=== PATIENT | female | born 1955 | race Caucasian/White ===

== ENCOUNTER 2025-02-16 14:21 | Emergency (ER) | payer MEDICARE, SELFPAY ==
[2025-02-16 14:23] VITALS: BP 132/108; PULSE 75; RESP 16; TEMP 36.6; O2SAT 100; BMI 45.4
--- NOTE | 2025-02-16 14:36 | EKG12_ITS ---
Test Reason : SOB Blood Pressure : */* mmHG Vent. Rate : 94 BPM Atrial Rate : 94 BPM P-R Int : 142 ms QRS Dur : 76 ms QT Int : 352 ms P-R-T Axes : 64 13 48 degrees QTcB Int : 440 ms Sinus rhythm with Premature atrial complexes Otherwise normal ECG Confirmed by LUTHER BARNEY, ELIAS ([id number]), editor map AVEL MAYEN ([id number]) on 02/17/2025 10:35:25 AM Referred By: SEBASTIAN/LUIS F Confirmed By: ELIAS SLOAN MD
--- NOTE | 2025-02-16 14:40 | VDLE_ITS ---
Reason For Study Reason For Study: SWELLING RIGHT LEFT GSV is normal. GSV is normal. CFV is compressible, spontaneous, phasic, competent CFV is compressible, spontaneous, phasic, competent, and demonstrates normal augmentation. and demonstrates normal augmentation. FV is compressible, spontaneous, phasic, competent FV is compressible, spontaneous, phasic, competent and demonstrates normal augmentation. and demonstrates normal augmentation. POP V is compressible, spontaneous, phasic, competent POP V is compressible, spontaneous, phasic, competent and demonstrates normal augmentation. and demonstrates normal augmentation. T/P Trunk is compressible. T/P Trunk is compressible. PTV is compressible. PTV is compressible. RT PerV is compressible. LT PerV is compressible. Procedure NON-VASCULAR structure noted in LT POP FOSSA space This is a venous duplex using B-mode, color flow and measuring 2.85 cm x 2.60 cm. spectral Doppler. Exam performed in department. The study was technically difficult. The exam was diagnostic. A preliminary report was called and/or faxed to ED @ 15:15. VL/Venous Duplex US - Efrain Extrem Interpretation Summary Deep veins of the lower extremities are bilaterally patent and compressible seg mentally. There is no evidence of deep vein thrombosis on either side. Valvular competence appears intact within the p roximal deep venous systems bilaterally. The great saphenous veins appear bilaterally patent and compressible segmentall y. A non-vascular, hypoechoic structure is noted in the left popliteal space, measuring 2.85 cm x 2.60 cm. This probabl y represents a popliteal cyst. Clinical correlation is advised. Ordering Physician: Simón Mccain Referring Physician: Day Frederick Performed By: Zena Elliott, RDCS, RVT
[2025-02-16 14:46] LABS: Absolute Lymphocyte Count 2.61 X10^3/uL (0.83-4.51); Absolute Neutrophil Count 4.9 X10^3/uL (2.0-7.7); Basophil# 0.07 X10^3/uL; Basophil% 0.8 % (0-1); Eosinophil# 0.81 X10^3/uL; Eosinophils% 9.2 % (0-5); Hematocrit 37.9 % (37-47); Hemoglobin 13.2 g/dL (12.0-15.0); Lymphocyte # 2.61 X10^3/ul (0.83-4.51); Lymphocyte % 29.5 % (19-41); Mean Corp Hgb Conc 34.8 g/dL (32-36); Mean Corpuscular Hgb 29.5 pg (27.0-32.0); Mean Corpuscular Volume 84.6 fL (81-99); Mean Platelet Vol. 8.6 fl (6.2-12.0); Monocyte# 0.48 X10^3/uL; Monocyte% 5.4 % (0-10); NRBC Flagged by Analyzer 0 % (0-5); Neutrophil # 4.85 X10^3/uL (2.7-7.7); Neutrophil % 54.8 % (47-70); Platelet Count 363 K/mm3 (150-450); RBC Distribution Width CV 14.2 % (11.6-14.6); RBC Distribution Width SD 43.5 fl (35.1-43.9); Red Blood Count 4.48 M/mm3 (4.2-5.4); White Blood Count 8.9 K/mm3 (4.4-11.0)
[2025-02-16 15:17] LABS: Anion Gap 13 (5-15); BUN 15 mg/dL (4-19); BUN/Creat Ratio 21.3 RATIO (10-20); Calcium,Total 9.5 mg/dL (7.6-11.0); Chloride 97 mmol/L (98-108); Creatinine, Serum 0.69 mg/dL (0.70-1.20); EST Glomerular Filtration Rate 95 (>60); Estimated Creatinine Clearance 79.88 ml/min (50-250); Glucose 182 mg/dL (70-99); Potassium 4.5 mmol/L (3.3-5.1); Sodium Level 136 mmol/L (133-145)
[2025-02-16 15:20] LABS: D-Dimer Quantitative (DVT/PE) 0.37 FEU/ug/m (0.27-0.49)
[2025-02-16 15:30] LABS: Troponin T High Sensitivity 10 ng/L (<=14)
--- NOTE | 2025-02-16 15:44 | ED.RN ---
MD seeing pt in triage room 2
--- NOTE | 2025-02-16 15:48 | EX.ED.DYSGE1 ---
HPI History of Present Illness Chief Complaint: Shortness of Breath Informant: patient Narrative Narrative: Sent in from PCP for evaluation. Concerns for potential PE or DVT. She has had some left lower extremity swelling which she went to the lower limbs back on January 22. She went by car. She tried to go to breast care there however did not [id number] and her insurance number not matching referred to the ED however her brother was sick and she stayed with him who . She returned 3 days ago saw her PCP today. Intermittent chest pain nonobstructive coronary disease diabetes hyperlipidemia history. She has had a cough for last 2 months. No fever or chills. States she feels cold. No dysuria. [facility] Medical History (Updated 02/16/25 @ 19:[address] Simón Mccain, DO) Diabetes Home Medications ?Medication ?Instructions ?Recorded ?Last Taken ?Type metformin 500 mg tablet,extended 1,000 mg PO BID 02/01/14 02/16/25 History release 24 hr albuterol sulfate 90 mcg/actuation 2 inh inhalation Q4H PRN shortness 02/16/25 Unknown History breath activated powder inhaler of breath aspirin 81 mg tablet,delayed 81 mg PO DAILY 02/16/25 02/15/25 History release (Adult Aspirin Regimen) atorvastatin 80 mg tablet 80 mg PO QHS 02/16/25 02/15/25 History cholecalciferol (vitamin D3) 125 125 mcg PO QHS 02/16/25 02/15/25 History mcg (5,000 unit) capsule cyclobenzaprine 10 mg tablet 10 mg PO QHS PRN MUSCLE SPASMS 02/16/25 02/12/25 History dulaglutide 3 mg/0.5 mL 3 mg subcut QWEEK 02/16/25 02/09/25 History subcutaneous pen injector ([facility]) fluticasone propionate 50 2 spray intranasal DAILY PRN 02/16/25 Unknown History mcg/actuation nasal allergy symptoms spray,suspension (Allergy Relief (fluticasone)) ibuprofen 200 mg capsule (Advil 800 mg PO Q6H PRN fever or pain 02/16/25 02/15/25 History Migraine) levothyroxine 137 mcg tablet 137 mcg PO DAILY 02/16/25 02/16/25 History losartan 25 mg tablet 25 mg PO DAILY 02/16/25 02/16/25 History magnesium oxide 400 mg PO BID 02/16/25 02/14/25 History metoprolol succinate 50 mg 50 mg PO QHS 02/16/25 02/15/25 History tablet,extended release 24 hr nitroglycerin 0.4 mg sublingual 0.4 mg sublingual Q5M PRN chest 02/16/25 Unknown History tablet pain omeprazole 20 mg capsule,delayed 20 mg PO DAILY 02/16/25 Unknown History release sertraline 100 mg tablet 100 mg PO DAILY 02/16/25 02/16/25 History Allergy/AdvReac Type Severity Reaction Status Date / Time carbamazepine Allergy Rash Verified 02/16/25 14:26 Penicillins Allergy Rash Verified 02/16/25 14:26 codeine AdvReac Nausea/Vom/ Verified 02/16/25 14:26 Diarrhea Opioids - Morphine Analogues AdvReac Nausea Verified 02/16/25 14:26 (narcotics) Sulfa (Sulfonamide AdvReac Nausea Verified 02/16/25 14:26 Antibiotics) Social History Smoking Status: Never smoker ROS ROS ED Constitutional Constitutional ED: Denies chills, fever(s) or sweats ENT ENT ED: Denies sore throat Cardiovascular Cardiovascular: Reports chest pain and leg edema; Denies palpitations or racing heartbeat Respiratory/Chest Respiratory/Chest: Reports cough; Denies dyspnea or dyspnea on exertion Gastrointestinal Gastrointestinal: Denies abdominal pain, diarrhea, nausea or vomiting Genitourinary Genitourinary ED: Denies dysuria, hematuria or urinary frequency Musculoskeletal Musculoskeletal: Denies back pain, extremity pain or neck pain Integumentary Denies rash or wounds Neurologic Neurologic: Denies headache(s), paresthesias or weakness EXAM Physical Exam Const Vital Signs: 02/16/25 14:23 02/16/25 16:00 02/16/25 16:00 Temperature 97.8 F Temperature Source Oral Pulse Rate 75 Respiratory Rate 16 15 Respiratory Effort Respiratory Depth Respiratory Pattern Blood Pressure 132/108 H Blood Pressure Mean 116 Pulse Ox 100 100 100 Oxygen Delivery Method Room Air Room Air Room Air 02/16/25 16:00 02/16/25 16:00 02/16/25 16:23 Temperature Temperature Source Pulse Rate 72 Respiratory Rate 19 H Respiratory Effort Normal Non-Labored Normal Non-Labored Respiratory Depth Normal Respiratory Pattern Normal Blood Pressure 136/51 H Blood Pressure Mean 79 Pulse Ox 97 Oxygen Delivery Method Room Air Room Air 02/16/25 17:48 02/16/25 19:00 02/16/25 19:21 Temperature 97.8 F Temperature Source Pulse Rate 76 79 96 Respiratory Rate 13 18 18 Respiratory Effort Respiratory Depth Respiratory Pattern Blood Pressure 121/89 H 115/59 L 115/59 L Blood Pressure Mean 99 77 77 Pulse Ox 99 100 100 Oxygen Delivery Method Room Air Positive well nourished and well developed General Appearance ED: well developed and NAD HEENT Reports moist mucous membranes normocephalic and atraumatic Eyes General Eye ED: Yes normal appearance of both eyes Neck full ROM Chest Wall Chest: Negative for tenderness Resp normal respiratory effort and normal air movement Effort and Inspection: symmetric chest movement; Negative for respiratory distress Cardio regular rate, regular rhythm and no murmurs Peripheral Pulses: pulses 2+ throughout GI normal to inspection, nondistended, normoactive bowel sounds and non-tender Palpation: Negative for guarding or rebound tenderness present Extremity normal to inspection Extremity Narrative: Minimal swelling bilateral feet good pulses. No calf or medial thigh tenderness. Slightly more on the left side. General Extremety ED: Yes edema; Negative for tenderness General Extremity: edema Neuro oriented x3 and no sensory deficits noted Sensorium / Orientation: awake and alert Skin no rashes or lesions noted and no wounds MDM MDM MDM Narrative Medical decision making narrative: Interventions / MDM: Differential diagnosis: Peripheral edema, atypical chest pain Diagnosis considered but do not suspect: DVT ultrasound negative. PE however D-dimer negative. ACS however EKG cardiac enzymes negative. My EKG interpretation: Sinus rhythm 94, no ST changes no T wave inversions. Premature atrial contractions noted. Imaging independently reviewed and interpreted by myself: Bilateral lower extremity ultrasound: Negative per senior pharmacy technician. 2 view chest x-ray: No acute process. External documents reviewed: N/A Test considered but not ordered:N/A ED course: Patient seen in triage due to busy department. Workup initiated protocol Through nursing triage. Her EKG sinus rhythm PAC noted. Leg ultrasound ordered, D-dimer added. 1544: Ultrasounds negative initial troponin negative. D-dimer negative. Hemoglobin 13.2 white count 8.9. Sodium 136 potassium 4.5. Creatinine 0.69. Two-view chest x-ray ordered for further evaluation. 1914: Repeat troponin negative. Chest x-ray negative. Patient ambulated with pulse ox 99% room air. Discussed likely dependent edema from her travels. Discussed elevating when she is resting and monitoring. She will follow-up with her PCP. All questions were answered. Re-evaluation: stable Disposition discussed with patient/family/significant other: Patient and family Case discussed with consulting clinician: N/A This note was generated with [employer] dictation software. It may contain incorrect words, spelling, and punctuation that were not noted in checking the note before signing. Lab Data Attestation: I reviewed the patient's lab results. Labs: Laboratory Results - last 24 hr 02/16/25 02/16/25 02/16/25 14:35 17:10 18:55 WBC 8.9 RBC 4.48 Hgb 13.2 Hct 37.9 MCV 84.6 MCH 29.5 MCHC 34.8 RDW Std Deviation 43.5 RDW Coeff of [place] 14.2 Plt Count 363 MPV 8.6 Immature Gran % (Auto) 0.300 Neut % (Auto) 54.8 Lymph % (Auto) 29.5 [place] % (Auto) 5.4 Eos % (Auto) 9.2 H Baso % (Auto) 0.8 Absolute Neuts (auto) 4.9 Absolute Lymphs (auto) 2.61 Nucleated RBC % 0 D-Dimer Quant (PE/DVT) 0.37 Sodium 136 Potassium 4.5 Chloride 97 L Carbon Dioxide 26.0 Anion Gap 13 BUN 15 Creatinine 0.69 L Estim Creat Clear Calc 79.88 Est GFR (MDRD) Non-Af 95 BUN/Creatinine Ratio 21.3 H Glucose 182 H Calcium 9.5 Troponin T High Sens 10 Troponin T Hi Sens 2 Hr 9 Troponin T Hi Sens 4Hr 9 NT pro BNP II 452 Radiography Diagnostic Testing: Clinical Impression(s) from Imaging Studies Venous Doppler Study 02/16/25 14:40 Interpretation Summary Deep veins of the lower extremities are bilaterally patent and compressible segmentally. There is no evidence of deep vein thrombosis on either side. Valvular competence appears intact within the proximal deep venous systems bilaterally. The great saphenous veins appear bilaterally patent and compressible segmentally. A non-vascular, hypoechoic structure is noted in the left popliteal space, measuring 2.85 cm x 2.60 cm. This probably represents a popliteal cyst. Clinical correlation is advised. Ordering Physician: Simón Mccain Referring Physician: Day Frederick Performed By: Znea Elliott, BRITTANY, RVT Chest X-Ray 02/16/25 16:15 IMPRESSION: NO ACUTE FINDINGS. Reading Location: [place] [id number] Discharge Plan Triage Chief Complaint: Shortness of Breath Other Complaint: Edema ED Provider: Simón Mccain Dx/Rx/DC Orders Clinical Impression: Chest pain, Edema, peripheral Instructions: ED Chest Pain, Uncertain Cause, ED Peripheral Edema, Bilateral Prescriptions: No Action metformin 500 MG tablet extended release 24 hr 1,000 mg PO BID Patient Comments: Trulicity 3 mg/0.5 mL pen injector 3 mg subcut QWEEK Rx Instructions: TAKE ON TUESDAYS, TAKES AT NIGHT losartan 25 mg tablet 25 mg PO DAILY omeprazole 20 mg capsule,delayed release(DR/EC) 20 mg PO DAILY Patient Comments: PT TAKES NEEDED levothyroxine 137 mcg tablet 137 mcg PO DAILY Rx Instructions: TAKE 1 AND 1/2 TAB ON SAT, SAT, AND SATURDAY cyclobenzaprine 10 mg tablet 10 mg PO QHS PRN (Reason: MUSCLE SPASMS) atorvastatin 80 mg tablet 80 mg PO QHS magnesium oxide 400 mg magnesium tablet 400 mg PO BID metoprolol succinate 50 mg tablet extended release 24 hr 50 mg PO QHS sertraline 100 mg tablet 100 mg PO DAILY fluticasone propionate [Allergy Relief (fluticasone)] 50 mcg/actuation spray,suspension 2 spray intranasal DAILY PRN (Reason: allergy symptoms) nitroglycerin 0.4 mg tablet, sublingual 0.4 mg sublingual Q5M PRN (Reason: chest pain) Rx Instructions: do not exceed 3 doses per episode aspirin [Adult Aspirin Regimen] 81 mg tablet,delayed release (DR/EC) 81 mg PO DAILY albuterol sulfate 90 mcg/actuation aerosol powdr breath activated 2 inh inhalation Q4H PRN (Reason: shortness of breath) ibuprofen [Advil Migraine] 200 mg capsule 800 mg PO Q6H PRN (Reason: fever or pain) cholecalciferol (vitamin D3) 125 mcg (5,000 unit) capsule 125 mcg PO QHS Primary Care Provider: Jerel Carranza Referrals: Day Frederick MD [Non-Staff] - Jerel Carranza MD [Primary Care Provider] - 3-5 Days Activity Restrictions/Additional Instructions: Ultrasounds negative lower extremities for DVT. Cardiac workup including D-dimer negative. BNP normal. Chest x-ray normal. Elevate your legs while sitting or laying down. Follow-up with your doctor. Print Language: Ivorian Disposition Disposition: Home, Self Care Discharge Date/Time: 02/16/25 19:22
[2025-02-16 15:57] LABS: Pro- Brain NATRIURETIC PEPTIDE 452 pg/mL (<=900)
[2025-02-16 16:00] VITALS: RESP 15; O2SAT 100
--- NOTE | 2025-02-16 16:15 | RAD_ITS ---
PROCEDURE: CHEST PA AND LATERAL 02/16/2025 REASON FOR EXAM: SOB TECHNIQUE: Frontal and lateral views of the chest. COMPARISON: None. FINDINGS: Hardware: None. Heart: The heart size is normal. Mediastinum: The mediastinal contour is unremarkable. Lungs: The lungs are clear. Bones: Partially visualized lumbar fixation. RAD/Chest PA and Lateral IMPRESSION: NO ACUTE FINDINGS. Reading Location: [place] [id number]
[2025-02-16 16:23] VITALS: BP 136/51; PULSE 72; RESP 19; O2SAT 97
[2025-02-16 17:30] LABS: Troponin T High Sens 2 HR 9 ng/L (<=14)
[2025-02-16 17:48] VITALS: BP 121/89; PULSE 76; RESP 13; O2SAT 99
[2025-02-16 19:00] VITALS: BP 115/59; PULSE 79; RESP 18; O2SAT 100
[2025-02-16 19:21] VITALS: BP 115/59; PULSE 96; RESP 18; TEMP 36.6; O2SAT 100
[2025-02-16 19:29] LABS: Troponin T High Sens 4 HR 9 ng/L (<=14)
== END 2025-02-16 19:22 | disposition home or self-care (01) ==
PROVIDERS: Emergency Provider Emergency Medicine; PCP Family Medicine; Visit Provider Emergency Medicine
DX: R07.9 Chest pain, unspecified (principal); E11.9 Type 2 diabetes mellitus without complications; R06.02 Shortness of breath; I49.1 Atrial premature depolarization; R60.9 Edema, unspecified; R05.9 Cough, unspecified
CPT/HCPCS: 71046; 80048; 83880; 84484; 85025; 85379; 93005; 93970; 94760; 99285; A4216

== ENCOUNTER 2025-07-29 17:38 | Emergency (ER) | payer MEDICARE, SELFPAY ==
[2025-07-29 17:38] VITALS: BP 123/92; PULSE 78; RESP 16; TEMP 35.7; O2SAT 100
[2025-07-29 17:51] VITALS: BMI 45.6
--- NOTE | 2025-07-29 18:23 | CT_ITS ---
PROCEDURE: CT/Brain/Head without Contrast
--- NOTE | 2025-07-29 18:23 | CT_ITS ---
PROCEDURE: CT/Spine Cervical without Contras
--- NOTE | 2025-07-29 18:30 | ED.VIS.FALL ---
HPI HPI - Fall History of Present Illness Chief Complaint: Fall Narrative Narrative: Chief complaint and HPI: 70-year-old female with past medical history of diabetes, HLD, HTN, hypothyroidism presents for evaluation after mechanical fall. Patient states she was walking out of a restaurant when she lost her balance. Denies LOC. Fell mostly on her right side. Endorses mild headache, neck pain, right shoulder, elbow, and hand pain. Denies any numbness or tingling. Review of systems: See HPI Medications: As listed on the chart Allergies: As listed on the chart PFSH: Per chart Vital signs: As listed on the chart. Reviewed. Physical exam: Gen: A&O x3, NAD Head: Normocephalic, atraumatic Eyes: No sclera icterus, conjunctiva clear, PERRL, EOMI ENT: TMs clear BL, moist mucous membranes, no swelling/lacerations/blood in the mouth or the nares, No nasal septal hematoma, no facial tenderness Neck: Trachea midline, no midline cervical tenderness, tenderness to palpation in the right paraspinal musculature of the cervical spine and into the right trapezius muscle-this recreates her pain CV: RRR, no murmurs, no chest wall TTP Resp: Lungs CTA BL, no w/r/c GI: Abd soft, non-distended, non-tender, no r/r/g Musc: Full ROM, no deformity, no spinal TTP, no jeaneth step-offs, patient has tenderness to palpation of the right shoulder, elbow, proximal palm of the right hand. Has ecchymosis and mild swelling to the proximal ulnar and proximal palm of the right hand. Radial pulse +2 bilaterally. DP/PT pulses +2 bilaterally. Good capillary refill. Sensation intact. Compartments soft. Skin: Warm, dry Neuro: Alert, oriented, grossly intact, sensation intact, GCS 15 Psych: Cooperative, appropriate mood and affect [facility] Medical History Diabetes Home Medications ?Medication ?Instructions ?Recorded ?Last Taken ?Type metformin 500 mg tablet,extended 1,000 mg PO BID 02/01/14 02/16/25 History release 24 hr albuterol sulfate 90 mcg/actuation 2 inh inhalation Q4H PRN shortness 02/16/25 Unknown History breath activated powder inhaler of breath aspirin 81 mg tablet,delayed 81 mg PO DAILY 02/16/25 02/15/25 History release (Adult Aspirin Regimen) atorvastatin 80 mg tablet 80 mg PO QHS 02/16/25 02/15/25 History cholecalciferol (vitamin D3) 125 125 mcg PO QHS 02/16/25 02/15/25 History mcg (5,000 unit) capsule cyclobenzaprine 10 mg tablet 10 mg PO QHS PRN MUSCLE SPASMS 02/16/25 02/12/25 History dulaglutide 3 mg/0.5 mL 3 mg subcut QWEEK 02/16/25 02/09/25 History subcutaneous pen injector (Trul[facility]) fluticasone propionate 50 2 spray intranasal DAILY PRN 02/16/25 Unknown History mcg/actuation nasal allergy symptoms spray,suspension (Allergy Relief (fluticasone)) ibuprofen 200 mg capsule (Advil 800 mg PO Q6H PRN fever or pain 02/16/25 02/15/25 History Migraine) levothyroxine 137 mcg tablet 137 mcg PO DAILY 02/16/25 02/16/25 History losartan 25 mg tablet 25 mg PO DAILY 02/16/25 02/16/25 History magnesium oxide 400 mg PO BID 02/16/25 02/14/25 History metoprolol succinate 50 mg 50 mg PO QHS 02/16/25 02/15/25 History tablet,extended release 24 hr nitroglycerin 0.4 mg sublingual 0.4 mg sublingual Q5M PRN chest 02/16/25 Unknown History tablet pain omeprazole 20 mg capsule,delayed 20 mg PO DAILY 02/16/25 Unknown History release sertraline 100 mg tablet 100 mg PO DAILY 02/16/25 02/16/25 History Allergy/AdvReac Type Severity Reaction Status Date / Time carbamazepine Allergy Rash Verified 07/29/25 17:40 Penicillins Allergy Rash Verified 07/29/25 17:40 codeine AdvReac Nausea/Vom/ Verified 07/29/25 17:40 Diarrhea Opioids - Morphine Analogues AdvReac Nausea Verified 07/29/25 17:40 (narcotics) Sulfa (Sulfonamide AdvReac Nausea Verified 07/29/25 17:40 Antibiotics) Social History Smoking Status: Never smoker EXAM Physical Exam Const Vital Signs: 07/29/25 17:38 07/29/25 17:49 Temperature 96.2 F L Temperature Source Temporal Pulse Rate 78 Respiratory Rate 16 Respiratory Effort Normal Non-Labored Respiratory Depth Normal Respiratory Pattern Normal Blood Pressure 123/92 H Blood Pressure Mean 102 Pulse Ox 100 Oxygen Delivery Method Room Air Room Air MDM MDM MDM Narrative Medical decision making narrative: 70 old female with past medical history of diabetes, HLD, HTN, hypothyroidism presents for evaluation after mechanical fall. Patient states she was walking out of a restaurant when she lost her balance. Denies LOC. Fell mostly on her right side. Endorses mild headache, neck pain, right shoulder, elbow, and hand pain. See physical exam findings. Differential diagnosis includes but is not limited to contusion, fracture, sprain. Suspect less likely intracranial abnormality. Given this is purely mechanical fall the laboratory workup will be obtained. Patient offered narcotic pain medicine but declined. Tylenol ordered. CT of the head and neck ordered. X-ray of the right upper extremity ordered. CT of the head shows no acute intracranial abnormality. CT of the cervical spine shows no acute traumatic injury. Reversal of the cervical lordosis, may reflect muscle spasm. X-ray of the elbow, forearm, hand, shoulder was personally reviewed and interpreted by nd, ED physician. No fracture or dislocation. Radiology in agreement. Patient's symptoms are likely secondary to contusion. Patient stable to discharge home. Tylenol and ibuprofen as needed for pain. Follow-up with primary care physician. She confirmed understand the plan. Patient will discharge. Impression: 1. Mechanical fall 2. Closed head injury 2. Right upper extremity contusion Radiography Diagnostic Testing: Clinical Impression(s) from Imaging Studies Brain CT 07/29/25 18:23 IMPRESSION: No acute intracranial abnormality. Reading Location: [facility] Cervical Spine CT 07/29/25 18:23 IMPRESSION: 1. No acute cervical spine fracture. 2. Reversal of the cervical lordosis, may reflect muscle spasm. 3. Degenerative changes of the spine, as above. Reading Location: [facility] Elbow X-Ray 07/29/25 18:46 IMPRESSION: NO ACUTE FRACTURE OR DISLOCATION. Reading Location: [facility] Forearm X-Ray 07/29/25 18:46 IMPRESSION: NO ACUTE FRACTURE OR DISLOCATION. Reading Location: [facility] Hand X-Ray 07/29/25 18:46 IMPRESSION: NO ACUTE FRACTURE OR DISLOCATION. If acute hand or wrist trauma is suspected and initial radiographs are negative or equivocal repeat radiographs in 10-14 days MRI without IV contrast or CT without IV contrast is usually appropriate as the next imaging study. (ACR Appropriateness Criteria: Acute Hand and Wrist Trauma 2018) Reading Location: [facility] Shoulder X-Ray 07/29/25 18:46 IMPRESSION: NO ACUTE FRACTURE OR DISLOCATION. Reading Location: [facility] Discharge Plan Triage Chief Complaint: Fall ED Provider: Fermín Muniz Dx/Rx/DC Orders Prescriptions: No Action metformin 500 MG tablet extended release 24 hr 1,000 mg PO BID Patient Comments: Trulicity 3 mg/0.5 mL pen injector 3 mg subcut QWEEK Rx Instructions: TAKE ON TUESDAYS, TAKES AT NIGHT losartan 25 mg tablet 25 mg PO DAILY omeprazole 20 mg capsule,delayed release(DR/EC) 20 mg PO DAILY Patient Comments: PT TAKES NEEDED levothyroxine 137 mcg tablet 137 mcg PO DAILY Rx Instructions: TAKE 1 AND 1/2 TAB ON SAT, SAT, AND SATURDAY cyclobenzaprine 10 mg tablet 10 mg PO QHS PRN (Reason: MUSCLE SPASMS) atorvastatin 80 mg tablet 80 mg PO QHS magnesium oxide 400 mg magnesium tablet 400 mg PO BID metoprolol succinate 50 mg tablet extended release 24 hr 50 mg PO QHS sertraline 100 mg tablet 100 mg PO DAILY fluticasone propionate [Allergy Relief (fluticasone)] 50 mcg/actuation spray,suspension 2 spray intranasal DAILY PRN (Reason: allergy symptoms) nitroglycerin 0.4 mg tablet, sublingual 0.4 mg sublingual Q5M PRN (Reason: chest pain) Rx Instructions: do not exceed 3 doses per episode aspirin [Adult Aspirin Regimen] 81 mg tablet,delayed release (DR/EC) 81 mg PO DAILY albuterol sulfate 90 mcg/actuation aerosol powdr breath activated 2 inh inhalation Q4H PRN (Reason: shortness of breath) ibuprofen [Advil Migraine] 200 mg capsule 800 mg PO Q6H PRN (Reason: fever or pain) cholecalciferol (vitamin D3) 125 mcg (5,000 unit) capsule 125 mcg PO QHS Primary Care Provider: Jerel Carranza Referrals: Jerel Carranza MD [Primary Care Provider, Medical] Print Language: Urdu
--- NOTE | 2025-07-29 18:46 | RAD_ITS ---
PROCEDURE: RAD/Shoulder min 2 Views
--- NOTE | 2025-07-29 18:46 | RAD_ITS ---
PROCEDURE: RAD/Forearm 2 Views
--- NOTE | 2025-07-29 18:46 | RAD_ITS ---
PROCEDURE: RAD/Hand Min 3 Views
--- NOTE | 2025-07-29 18:46 | RAD_ITS ---
PROCEDURE: RAD/Elbow min 3 Views
[2025-07-29 20:54] VITALS: BP 117/67; PULSE 78; RESP 16; TEMP 36.8; O2SAT 99
== END 2025-07-29 20:56 | disposition home or self-care (01) ==
PROVIDERS: Emergency Provider Surgery; PCP Family Medicine; Visit Provider Surgery
DX: S09.90XA Unspecified injury of head, initial encounter (principal); E11.9 Type 2 diabetes mellitus without complications; E78.5 Hyperlipidemia, unspecified; I10 Essential (primary) hypertension; E03.9 Hypothyroidism, unspecified; S40.021A Contusion of right upper arm, initial encounter; W19.XXXA Unspecified fall, initial encounter
CPT/HCPCS: 70450; 72125; 73030; 73080; 73090; 73130; 99282